=== PATIENT | female | born 1975 | race Two or more races ===

== ENCOUNTER 2021-10-19 11:32 | Emergency (ER) | payer OTHER ==
[2021-10-19 11:48] VITALS: BP 128/71; PULSE 77; TEMP 98.3; BMI 26.9
[2021-10-19 12:37] LABS: BASO % 1.5 % (0-2.0); EOS % 2.3 % (0-4.5); HEMATOCRIT 31.5 % (32.4-45.2); HEMOGLOBIN 9.9 GM/dL (10.7-15.3); LYMPH % 21.6 % (8-40); MCHC 31.5 g/dl (32.0-36.0); MEAN CELL VOLUME 76.1 fl (80-96); MEAN PLT VOLUME 7.7 fl (7.5-11.1); MONO % 8.6 % (3.8-10.2); PLATELET COUNT 407 10^3/uL (134-434); RBC 4.14 M/mm3 (3.60-5.2); RDW 14.3 % (11.6-15.6); WHITE BLOOD COUNT 8.8 K/mm3 (4.0-10.0)
[2021-10-19 12:49] LABS: INR 1.03 (0.83-1.09); PROTHROMBIN TIME (PATIENT) 11.9 SEC (9.7-13.0)
[2021-10-19 12:51] LABS: CALCIUM 9.2 mg/dL (8.5-10.1)
[2021-10-19 12:52] LABS: ALBUMIN 3.4 g/dl (3.4-5.0); BLOOD UREA NITROGEN 8.4 mg/dL (7-18)
[2021-10-19 12:55] LABS: CREATININE 0.6 mg/dL (0.55-1.3)
[2021-10-19 12:57] LABS: TOT PROT 7.5 g/dl (6.4-8.2)
[2021-10-19 12:58] LABS: BILIRUBIN,TOTAL 0.2 mg/dL (0.2-1)
[2021-10-19 13:00] LABS: N-TERMINAL BNP 46.7 pg/ml (5-125)
== END 2021-10-19 16:30 | disposition home or self-care (01) ==
LOC: JER 11:32
DX: R42 Dizziness and giddiness (principal)
CPT/HCPCS: 36415; 71046-TC-FY; 80053; 82550; 83880; 84439; 84443; 84484; 84703; 85025; 85610; 93005; 93010; 99285-25